=== PATIENT | male | born 1955 | race Caucasian/White ===

== ENCOUNTER 2017-04-28 14:23 | Emergency (ER) | payer OTHER ==
[~2017-04-28] VITALS: Ht 182.9 cm; Wt 90.0 kg
[2017-04-28 15:36] LABS: EOSINOPHIL (%) 2.8 % (0-5); EOSINOPHIL COUNT 0.3 K/uL (0-0.3); HEMATOCRIT 39.6 % (38.0-50.0); IMMATURE GRANULOCYTE (%) 0.5 % (0.0-0.7); IMMATURE GRANULOCYTE COUNT 0.1 K/uL; INSTRUMENT ABS NEUTROPHIL CT 7.7 K/uL; LYMPHOCYTE COUNT 1.2 K/uL (1.0-2.8); MCHC 31.8 G/DL (30.0-36.0); MEAN PLAT.VOLUME 11.1 uM^3 (9.0-12.4); MONOCYTE (%) 6.6 % (3-12); MONOCYTE COUNT 0.7 K/uL (0-0.8); NEUTROPHIL (%) 77.3 % (45-76); NEUTROPHIL COUNT 7.7 K/uL (1.8-6.4); PLATELET COUNT 228 K/uL (156-360); RBC DIS.WIDTH-CV 14.6 % (11.8-14.6); RED BLOOD COUNT 4.66 M/uL (4.00-5.50); WHITE BLOOD COUNT 9.9 K/uL (4.1-10.2)
[2017-04-28 15:45] LABS: CHLORIDE 102 mEq/L (99-109); POTASSIUM 3.7 mEq/L (3.7-5.4); SODIUM 139 mEq/L (136-147)
[2017-04-28 15:46] LABS: GLUCOSE 159 mg/dL (70-99)
[2017-04-28 15:48] LABS: ANION GAP 10 MEQ/L (2-14)
[2017-04-28 15:50] LABS: GFR ESTIMATE (CALCULATED) > 59 mL/min/
[2017-04-28 15:51] LABS: UREA NITROGEN (BUN) 12 mg/dL (9-23)
[2017-04-28] MEDS ORDERED: XARELTO1 EACH PO (17:10)
[2017-04-28 17:26] VITALS: BP 189/85
== END 2017-04-28 17:28 ==
LOC: EME 14:23
PROVIDERS: Emergency Medicine
DX: I82.401 Acute embolism and thrombosis of unspecified deep veins of right lower extremity (principal); J44.9 Chronic obstructive pulmonary disease, unspecified; I10 Essential (primary) hypertension; E78.5 Hyperlipidemia, unspecified; E11.9 Type 2 diabetes mellitus without complications; Z87.891 Personal history of nicotine dependence
CPT/HCPCS: 80048; 85025; 93971; 99281; 99284; J7040

== ENCOUNTER 2017-08-28 17:13 | Emergency (ER) | payer OTHER ==
[~2017-08-28] VITALS: Ht 182.9 cm; Wt 78.1 kg
[~2017-08-28 17:13] MED LIST: XARELTO1 EACH PO
[2017-08-28 21:00] VITALS: BP 200/82
== END 2017-08-28 21:01 ==
LOC: EME 17:13
DX: M79.89 Other specified soft tissue disorders (principal); R59.0 Localized enlarged lymph nodes; Z86.718 Personal history of other venous thrombosis and embolism; Z79.01 Long term (current) use of anticoagulants; Z87.891 Personal history of nicotine dependence
CPT/HCPCS: 93971; 99281; 99284